=== PATIENT | male | born 1980 | race Caucasian/White ===

== ENCOUNTER 2020-12-16 13:02 | Emergency (ER) | payer SELFPAY ==
[~2020-12-16] VITALS: Ht 185.4 cm; Wt 74.8 kg
[2020-12-16] MEDS ORDERED: IBUPROFEN 600 MG TABLET PO ONE (13:30)
[2020-12-16] MEDS ORDERED: IBUPROFEN 600 MG TABLET ONE (13:36)
--- NOTE | 2020-12-16 14:55 | NUR ---
Patient discharged to home in stable condition. Written and verbal after care instructions given. Patient verbalizes understanding of instructions. Stressed follow up or return to ER for worsening s/s.
[2020-12-16 14:57] VITALS: BP 117/74
== END 2020-12-16 14:57 | disposition home or self-care (01) ==
LOC: ER 13:02
DX: Z04.1 Encounter for examination and observation following transport accident (principal); R07.89 Other chest pain; M54.2 Cervicalgia; M54.89 Other dorsalgia; M79.602 Pain in left arm
CPT/HCPCS: 71101; 72050; 72072; A4663